=== PATIENT | female | born 1980 | race Caucasian/White ===

== ENCOUNTER 2021-01-22 16:54 | Emergency (ER) | payer OTHER | END 2021-01-22 18:32 | disposition home or self-care (01) | LOC: FER 16:54 | DX: L81.8 Other specified disorders of pigmentation (principal) | CPT/HCPCS: 99282 ==

== ENCOUNTER 2022-01-27 11:52 | Emergency (ER) | payer OTHER | END 2022-01-27 15:54 | disposition left against medical advice (07) | LOC: FER 11:52 | DX: R10.2 Pelvic and perineal pain (principal); Z53.29 Procedure and treatment not carried out because of patient's decision for other reasons | CPT/HCPCS: 99281 ==